=== PATIENT | female | born 1985 | race Caucasian/White ===

== ENCOUNTER 2021-08-23 08:00 | Outpatient (CLI) | payer BC ==
[2021-08-23 22:55] LABS: BACTERIAL VAGINOSIS DNA NEGATIVE (NEGATIVE); CANDIDA GLABRATA DNA NEGATIVE (NEGATIVE); CANDIDA GROUP DNA NEGATIVE (NEGATIVE); CANDIDA KRUSEI DNA NEGATIVE (NEGATIVE); TRICHOMONAS VAGINALIS DNA NEGATIVE (NEGATIVE)
== END 2021-08-23 23:59 | disposition home or self-care (01) ==
LOC: LAB.N 08:00
PROVIDERS: ATTEND Registered Nurse
DX: N89.8 Other specified noninflammatory disorders of vagina (principal); L29.8 Other pruritus
CPT/HCPCS: 81514